=== PATIENT | male | born 1975 | race Caucasian/White ===

== ENCOUNTER 2017-08-06 16:12 | Emergency (ER) | payer OTHER ==
[~2017-08-06] VITALS: Ht 177.8 cm; Wt 113.4 kg
--- NOTE | 2017-08-06 17:13 | RADIOLOGY REPORT ---
EXAMINATION: XR HAND, RIGHT CLINICAL INFORMATION: Question fracture. COMPARISON: No relevant prior imaging. TECHNIQUE: Four views of the right hand. FINDINGS: There is an acute transverse fracture involving the diaphysis of the proximal phalanx third digit with dorsal angulation and ulnar displacement of the distal fragment by one half shaft width. Otherwise no acute fracture or dislocation elsewhere within the right hand. Mild associated soft tissue swelling. IMPRESSION: Acute transverse fracture through the diaphysis of the proximal phalanx of the third digit with dorsal angulation and ulnar displacement of the distal fragment by one half shaft width.
--- NOTE | 2017-08-06 17:41 | ED HAND/WRIST INJURY COMPLAINT ---
History of Present Illness General Chief Complaint: Hand or Wrist Injury Stated Complaint: R HAND MIDDLE FINGER ?BREAK Source: patient, old records Exam Limitations: no limitations Vital Signs & Intake/Output Vital Signs & Intake/Output Vital Signs Date Time Temp Pulse Resp B/P B/P Pulse O2 O2 Flow FiO2 Mean Ox Delivery Rate 08/06 1804 97.0 84 18 124/82 97 Room Air Room Air 08/06 1618 96.5 87 20 129/86 98 Room Air Allergies Coded Allergies: MDX - PCN (penicillin) (PCN (PENICILLIN)) (RASH? 01/16/13) Reconcile Medications Clindamycin HCl 300 MG CAPSULE 1 CAP PO TID ppx Triage Note: PT TO ED C/O RIGHT HAND INJURY/PAIN S/P THE PRADHAN OF A TRACTOR COMING DOWN ON HIS HAND AT WORK. HAPPENED [employer]. THINKS LAST TETANUS SHOT WAS 2 YEARS AGO. ICE APPLIED, DECLINING MEDS IN TRIAGE. Triage Nurses Notes Reviewed? yes Occurred: just prior to arrival Duration: hour(s): (1), constant Timing: recent history Injury Environment: work Severity: moderate Severity Numbers: 6 Pain/Injury Location: Right: 3rd finger. Context: crush Method of Injury: direct blow No Modifying Factors: none Associated Symptoms: swelling HPI: 22-year-old male presents to ER for evaluation status post sustaining injury to his right third finger just prior to arrival when at work he states a tractor pradhan fell on his hand. He is right-hand dominant denies any numbness or tingling. He has limited range of motion of the right third finger secondary to pain. He also has abrasions to his right second and fourth fingers however denies any difficulty with range of motion. He has not taken anything for his symptoms and is declining anything when offered for pain Past History Travel History Traveled to [place] past 21 day No Medical History Any Pertinent Medical History? none Tetanus Vaccine: 01/16/13 Surgical History Surgical History: non-contributory Psychosocial History What is your primary language Malay Tobacco Use: Never used ETOH Use: denies use Illicit Drug Use: denies illicit drug use Family History Hx Contributory? No Review of Systems Review of Systems Constitutional: Reports: see HPI. Comments Review of systems: See HPI, All other systems negative. Constitutional, no chills no fever HEENT: no sore throat no congestion, Cardiovascular: No chest pain Skin: no rashes, no change in skin Respiratory: No dyspnea no cough no sputum Muscle skeletal:see hpi Neurologic: , no headache Heme/endocrine: No bruising Physical Exam Physical Exam General Appearance: well developed/nourished, no apparent distress, alert Hand Left: normal inspection, normal range of motion Hand Right: tender, 3rd finger Comments: Well-developed well-nourished patient in no apparent distress. HEENT: Atraumatic, extraocular motion intact Neck: Supple, FROM Back: FROM Respiratory: No respiratory distress. Patient speaking in full complete sentences. Shoulder: Atraumatic/Stable. FROM . Elbow: Atraumatic/stable. FROM. No laxity Upper arm/Forearm: Atraumatic. Nontender. No edema, 5 out of 5 skin former strength noted to bilateral upper extremities Hand/Wrist: right second third and fourth fingers with abrasions noted to dorsal base of fingers, right third finger there is a superfical 0.5cm linear laceration noted to the palmar aspect of the right 3rd finger pip joint,no visualized fb, or tendon injury , lrom of right 3rd finger, cap refill wnl, sensation wnl normal limits to all fingers, pt is able to flex/extendon 3rd finger minimally all ofther fingers have FROM on right hand Pulses: Normal/equal radial pulses bilaterally. Brisk cap refill Lower Extremities: full range of motion Neuro: awake, alert, and oriented to person, place and time. There were no obvious focal neurologic abnormalities. Skin: Warm & dry;No appreciable rash on exposed skin Psych: Mood affect normal, normal memory normal judgment. Progress Differential Diagnosis: contusion, compartment syndrome, dislocation, fracture, sprain, tendon inj Plan of Care: Orders Procedure Date/time Status XRY-FINGERS, RIGHT 08/06 1800 Active xray ordered from triage. pt declining anything for pain when offered i d.w the pt his xray results, after verbal conset obtained digital block of the r 3rd finger performed by me using lido 1% wo epi. 5 cc instilled with good relief. finger reduction attempted, splint applied. i d/w dr medina the xray results- advsied pt to f/u with ortho. i d/w the pt his xray results, finger splints in place, finger is neurovascularly intact. dermabond was applied to superficla laceration on finger. no active bleeding. normal cap refill and senation wnl after splitn application. rx for clindamycni was sent to the pts pharmacy. i d/w him given his xray results, and laceration need for abx at this time for prophylaxis treating as an open fracture. return precatuions including signs of compartment syndrome, worsening pain numbness, tingling were discussed at length. importance of close follow up with orthopedist was discussed. yessy knows dr johnson and states he will call them tomorrow. he feels comfortable with plan. pt and his father in law feel comfortable iwth plan, he is declining anything for pain to go home with. Diagnostic Imaging: Viewed by Me: Radiology Read. Discussed w/RAD: Radiology Read. Radiology Impression: PATIENT: YESSY MORENO PRESENT AGE: 42 PATIENT ACCOUNT NO: [id number] : 76 LOCATION: [facility] ORDERING PHYSICIAN: Brice Antonio DO (TBS) SERVICE DATE: 08/06/17 EXAM TYPE: RAD - XRY-HAND, RIGHT EXAMINATION: XR HAND, RIGHT CLINICAL INFORMATION: Question fracture. COMPARISON: No relevant prior imaging. TECHNIQUE: Four views of the right hand. FINDINGS: There is an acute transverse fracture involving the diaphysis of the proximal phalanx third digit with dorsal angulation and ulnar displacement of the distal fragment by one half shaft width. Otherwise no acute fracture or dislocation elsewhere within the right hand. Mild associated soft tissue swelling. IMPRESSION: Acute transverse fracture through the diaphysis of the proximal phalanx of the third digit with dorsal angulation and ulnar displacement of the distal fragment by one half shaft width. DICTATED BY: Gil Victoria MD DATE/TIME DICTATED:08/06/171706 [employer]EVER[employer] CONTROLLER: MINE DATE/TIME TRANSCRIBED:08/06/171706 CONFIDENTIAL, DO NOT COPY WITHOUT APPROPRIATE AUTHORIZATION. <Electronically signed in Other Vendor System> SIGNED BY: Gli Victoria MD 08/06/171712, PATIENT: YESSY MORENO PRESENT AGE: 42 PATIENT ACCOUNT NO: [id number] : 76 LOCATION: ER ORDERING PHYSICIAN: Chandan ROCA SERVICE DATE : 08/06/17 EXAM TYPE: RAD - XRY-FINGERS, RIGHT EXAMINATION: XR FINGER, RIGHT CLINICAL INFORMATION: Status post reduction. Third finger fracture. COMPARISON: Radiographs of the right hand same day. TECHNIQUE: A single lateral projection of the third digit was obtained. FINDINGS: A limited lateral projection of the third digit demonstrate persistent dorsal angulation of the distal fragment of a proximal phalangeal fracture of the third digit. IMPRESSION : Limited lateral projection reveals persistent dorsal angulation of the distal fragment of a proximal phalangeal fracture of the third digit. DICTATED BY: Gil Victoria MD DATE/TIME DICTATED:08/06/171842 FO[employer] AND BEVERAGE CONTROLLER: MINE DATE/TIME TRANSCRIBED:08/06/171842 CONFIDENTIAL, DO NOT COPY WITHOUT APPROPRIATE AUTHORIZATION. <Electronically signed in Other Vendor System> SIGNED BY: Gil Victoria MD 08/06/171847 Departure Departure Disposition: HOME OR SELF CARE Condition: Stable Clinical Impression Primary Impression: Finger fracture Secondary Impressions: Laceration Referrals: Leanne KRISHNAMURTHY,Chung Zurita (PCP/Family) Silverio KRISHNAMURTHY,Aurelio Wade Additional Instructions: Follow up with orthopedist dr johnson tomorrow. finger splint at all times until seen by ortho. rest, ice, tylenol or motrin for pain. ice as needed. return to the ER if you develop numbness, tingling, worsening pain or any other concerns. clindamycin as directed for prophylaxis Departure Forms: Customer Survey General Discharge Information Industrial Accident Report Prescriptions: Current Visit Scripts Clindamycin HCl 1 CAP PO TID #21 CAP Procedures Laceration/Wound Repair Laceration/Wound Repair: Wound Location: r 3rd finger Wound's Depth, Shape: linear, superficial Wound Length (cm): 0.5 Wound Explored: clean, no foreign body removed, irrigated extensively Betadine Prep? Yes Anesthesia: digit block, 1% lidocaine Volume Anesthetic (ccs): 5 Wound Repaired With: Dermabond Sterile Dressing Applied: Yes Splint Applied? Yes By Who? by me Type of Splint Applied: finger splint
[2017-08-06 18:04] VITALS: BP 124/82
[2017-08-06] MEDS ORDERED: CLINDAMYCIN HC300 M1 PO (18:26)
--- NOTE | 2017-08-06 18:48 | RADIOLOGY REPORT ---
EXAMINATION: XR FINGER, RIGHT CLINICAL INFORMATION: Status post reduction. Third finger fracture. COMPARISON: Radiographs of the right hand same day. TECHNIQUE: A single lateral projection of the third digit was obtained. FINDINGS: A limited lateral projection of the third digit demonstrate persistent dorsal angulation of the distal fragment of a proximal phalangeal fracture of the third digit. IMPRESSION: Limited lateral projection reveals persistent dorsal angulation of the distal fragment of a proximal phalangeal fracture of the third digit.
== END 2017-08-06 18:38 ==
LOC: ERH 16:12
DX: S62.612A Displaced fracture of proximal phalanx of right middle finger, initial encounter for closed fracture (principal); S61.212A Laceration without foreign body of right middle finger without damage to nail, initial encounter; W23.0XXA Caught, crushed, jammed, or pinched between moving objects, initial encounter; Y92.9 Unspecified place or not applicable; Y93.9 Activity, unspecified
CPT/HCPCS: 73130-RT; 73140-RT; J2001

== ENCOUNTER → 2017-08-15 | Day surgery (SDC) | payer OTHER ==
[~2017-08-15] MED LIST: CLINDAMYCIN HC300 M1 PO
--- NOTE | 2017-08-15 15:34 | Operative Report ---
Operative/Inv Procedure Report Surgery Date: 08/15/17 Name of Procedure: Open reduction internal fixation right middle finger proximal phalanx fracture Pre-Operative Diagnosis: Right middle finger proximal phalanx fracture Post-Operative Diagnosis: Same Estimated Blood Loss: scant Surgeon/Knifer Up: Silverio KRISHNAMURTHY,Aurelio ROCA Anesthesia: laryngeal mask airway IV Fluids: See anesthesia record Implants: [employer] vARIAX hand modular set straight plate Drains: None Specimens: None Tourniquet: See record Complications: None Condition: Stable Operative Indication: Patient's 42-year-old male with a displaced proximal phalanx fracture which was unstable 3 closed reduction. He was indicated for surgical fixation. Risks and benefits of procedure discussed the patient detail. Skilled set hands was provided an necessary with physician social service assistant Geronimo Hilton who aided with limb positioning and plate positioning and hardware throughout the case. Operative/Procedure Note Note: Once informed consent was obtained and the correct limb was identified the patient was brought to operative room placed on table in the supine position. After initiation of general endotracheal anesthesia patient had a tourniquet placed and the right arm the right hand was prepped and draped usual sterile fashion. To begin the procedure a dorsi lateral incision was made over the proximal phalanx of the middle anchor. Sharp dissection carried down through skin and subcutaneous tissue and care to avoid neurovascular structures. The extensor tendon was identified and retracted radially. The fracture site was identified and cleaned of any fracture debris and hematoma. A reduction was done with gentle traction. We able to hold reduction with a K wire provisionally. A plate from the [employer] set and modular set was chosen and laid on the lateral aspect of the ulnar border of the proximal phalanx shaft. This was secured with a plate-holding clamp. 4 screws were then placed 2 proximally and 2 distally for securing the plate to the bone. Images confirmed the reduction in AP and lateral plane. The screw length was optimal. The wound was then irrigated with sterile saline. The subcutaneous tissues were closed with 3 -0 Vicryl interpreted sutures and skin was closed with nylon sutures. A sterile splint and dressing was applied and patient was awakened taken recovery in stable condition.
== END ==
LOC: STS 04:39
DX: S62.612A Displaced fracture of proximal phalanx of right middle finger, initial encounter for closed fracture (principal); W23.1XXA Caught, crushed, jammed, or pinched between stationary objects, initial encounter; E11.9 Type 2 diabetes mellitus without complications; Z79.84 Long term (current) use of oral hypoglycemic drugs
CPT/HCPCS: C1713; J2001; J2250